=== PATIENT | male | born 1960 | race Caucasian/White ===

== ENCOUNTER 2017-11-07 00:53 | Emergency (ER) | payer MEDICARE, MEDICAID ==
[~2017-11-07] VITALS: Ht 167.6 cm; Wt 76.2 kg
[2017-11-07] MEDS ORDERED: BACLOFEN10 MG ORAL (01:15)
[2017-11-07] MEDS ORDERED: SENNA8.6 M2 PO (01:15)
[2017-11-07] MEDS ORDERED: GLUCAGON W/DILUE1 MG IJ (01:15)
[2017-11-07] MEDS ORDERED: MORPHINE IR15 MG ORAL (01:15)
[2017-11-07] MEDS ORDERED: DOCUSATE SODIU250 MG ORAL (01:15)
[2017-11-07] MEDS ORDERED: TOPIRAMATE100 MG ORAL (01:15)
[2017-11-07] MEDS ORDERED: TYLENOL325 MG ORAL (01:15)
[2017-11-07] MEDS ORDERED: GABAPENTIN600 MG ORAL (01:15)
[2017-11-07] MEDS ORDERED: NORCO 10-325 T1 EACH ORAL (01:15)
[2017-11-07] MEDS ORDERED: ARTIFICIAL TEAR15 ML BOTH EYES (01:15)
[2017-11-07] MEDS ORDERED: cloNIDine 0.2mg Tab ORAL ONE (01:30)
[2017-11-07 01:33] VITALS: BP 174/98
[2017-11-07] MEDS ORDERED: CLONIDINE0.1 MG PO (02:18)
--- NOTE | 2017-11-07 02:18 | Emergency Room Report ---
History of Present Illness General Chief Complaint: Hypertension Source: Patient, Medical Record Present Illness HPI Is a 57-year-old male coming from [facility]. He has a history of chronic pain, seizure, high blood pressure. Was on Catapres but no longer. He presents with chief complaint of high blood pressure. Patient has no symptoms. Per EMS blood pressure is 134/110. 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 Hx Seizures: Yes Review of Systems Eye: Denies: eye pain, blurred vision ENT: Denies: ear pain, nose congestion, throat swelling Respiratory: Denies: cough, shortness of breath Cardiovascular: Denies: chest pain, palpitations Gastrointestinal: Denies: abdominal pain, diarrhea, nausea, vomiting Musculoskeletal: Denies: back pain, joint pain Skin: Denies: rash Neurological: Denies: headache, numbness Endocrine: Denies: increased thirst, increased urine Hematologic/Lymphatic: Denies: easy bruising All Other Systems: negative except mentioned in HPI Physical Exam Vital Signs Date Time Temp Pulse Resp B/P (MAP) Pulse Ox O2 Delivery O2 Flow Rate FiO2 11/07/17 00:53 99.1 83 18 148/89 96 Room Air vitals with high blood pressure. Repeat blood pressure was 170/100. Sp02 EP Interpretation: reviewed, normal General Appearance: well appearing, no apparent distress, alert Head: normocephalic, atraumatic Eyes: bilateral eye PERRL, bilateral eye EOMI ENT: hearing grossly normal, normal pharynx Neck: full range of motion, supple, no meningismus Respiratory: chest non-tender, lungs clear, normal breath sounds Cardiovascular #1: regular rate, rhythm, no murmur Gastrointestinal: normal bowel sounds, non tender, no mass, no organomegaly, no bruit, non-distended Musculoskeletal: back normal, normal range of motion Neurologic: alert, oriented x3 Psychiatric: mood/affect normal Skin: warm/dry Medical Decision Making Diagnostic Impression: Primary Impression: Hypertension Qualified Codes: I10 - Essential (primary) hypertension ER Course Patient with high blood pressure. No in organ damage. No other complaint. We' ll put her back on Catapres when necessary. Last Vital Signs Date Time Temp Pulse Resp B/P (MAP) Pulse Ox O2 Delivery O2 Flow Rate FiO2 11/07/17 01:56 87 20 Room Air 11/07/17 01:33 174/98 11/07/17 01:33 99.1 96 Status: improved Disposition: XFER SNF Condition: Stable Scripts Clonidine HCl (Clonidine HCl) 0.1 Mg Tablet 0.1 MG PO Q8HR Y for SBP >170 or DBP >100, #30 TAB Prov: FOREIGN WOOD M.D. 11/07/17 Referrals: RUSS ROBINS (PCP) Patient Instructions: High Blood Pressure (Hypertension) Additional Instructions: Followup with your Dr. in 7 days. Return if symptom worsen. FOREIGN WOOD M.D. Nov 07, 2017 02:18
[2017-11-07 02:50] VITALS: BP 166/92
[2017-11-07 02:51] VITALS: BP 166/92
== END 2017-11-07 02:51 ==
LOC: EDBD 00:53 → EMR 01:07
DX: I10 Essential (primary) hypertension (principal); E11.9 Type 2 diabetes mellitus without complications; J44.9 Chronic obstructive pulmonary disease, unspecified; I69.354 Hemiplegia and hemiparesis following cerebral infarction affecting left non-dominant side
CPT/HCPCS: 99283